=== PATIENT | female | born 1950 | race Caucasian/White ===

== ENCOUNTER 2023-01-31 14:49 | Emergency (ER) | payer MEDICARE ==
[2023-01-31] MEDS ORDERED: KETOROLAC 30 MG/ML VIAL IM STA (15:20)
--- NOTE | 2023-01-31 15:22 | ED Physician Documentation ---
History of Present Illness - Stated complaint Stated Complaint: SOA,CHEST PX - Chief complaint Chief Complaint: Trauma Ch/Bk - Additonal information Additional information: 72-year-old female presents emergency department for evaluation of chest pain after ground-level fall. Reports walking her dog on Sunday when the leash was pulled sharply. She fell directly forward landing on her chest. She was able to get up. Did not strike her head or lose consciousness but over the last several days she has had increasing pain and now feels bubbles in the right side of her chest when she breathes. She does have a large area of bruising on the anterior chest. Patient is not anticoagulated. Has no history of hypertension or diabetes. No history of pulmonary disorders. Patient has taken 1500 mg of Tylenol 2-3 times a day for the discomfort. Review of Systems Constitutional: denies: Fever, Chills Cardiac: reports: Chest pain / pressure Respiratory: reports: Reviewed and negative GI: reports: Reviewed and negative : reports: Reviewed and negative PD PAST MEDICAL HISTORY - Allergies Allergies/Adverse Reactions: Allergies Allergy/AdvReac Type Severity Reaction Status Date / Time Penicillins Allergy Unknown Verified 01/31/23 15:03 zolpidem [From Ambien] Allergy Unknown Verified 01/31/23 15:03 PD ED PE NORMAL - General General: Alert and oriented X 3, No acute distress, Well developed/nourished - HEENT HEENT: Atraumatic - Neck Neck: Supple, no meningeal sign - Cardiac Cardiac: RRR, No murmur, Strong equal pulses, Other (Reproducible tenderness with palpation of the right lower anterior chest. Directly over the area of ecchymosis. There is no crepitus. Reproducible tenderness with palpation of the left anterior chest but no ecchymosis or crepitus noted) - Respiratory Respiratory: No respiratory distress, Clear bilaterally Results - Vitals Vitals: Vital Signs - 24 hr 01/31/23 14:56 Temperature 35.8 C L Heart Rate 65 Respiratory 16 Rate Blood Pressure 135/79 H O2 Saturation 96 Oxygen O2 Source Room air - Rads (name of study) CT chest Relevant Findings:: Final report received (No displaced fracture, pneumothorax or contusion) PD Medical Decision Making - ED course Complexity details: reviewed results, re-evaluated patient, considered differential, d/w patient ED course: 72-year-old female presents to the emergency department for evaluation of reproducible chest pain after ground-level fall 4 days ago. She has an obvious area of bruising and contusion to the right lower anterior ribs. She is not anticoagulated however she has been taking 1500 mg of Tylenol 3 times a day for the pain. On exam she appears remarkably well speaking in full sentences. Room air saturations high 90s without any tachypnea. Cardiopulmonary auscultation was otherwise unremarkable. Given the age however I did obtain a noncontrast CT of the chest to evaluate for the possibility of rib fractures, pulmonary contusion, pleural effusions, pneumothorax. Per the radiologist interpretation of the CT scan there were no acute findings. I did administer her 30 mg of Toradol IM with marked improvement in symptoms. In follow-up I reevaluated her and she is feeling much better. I discussed the CT imaging findings which do not show any acute fractures of the ribs. She is encouraged by this and does request to be discharged home. We discussed conservative care to include appropriate use of Tylenol and ibuprofen. The usual emergent return precautions for worsening symptoms was discussed. Departure - Departure Disposition: 01 Home, Self Care Clinical Impression: Ground-level fall Chest wall contusion Qualifiers: Encounter type: initial encounter Laterality: left Qualified Code(s): S20.212A - Contusion of left front wall of thorax, initial encounter Condition: Stable Record reviewed to determine appropriate education?: Yes Instructions: ED Contusion Chest Wall Ch Comments: As discussed at the bedside the CT of your chest did not show any puncture of the lung, contusion of the lung or rib fractures. You do have a contusion or bruise of your chest wall. This is likely something that will get better over the next week or so. I recommend that you take Tylenol 500 mg 3-4 times a day or alternate with 600 mg of ibuprofen taken with food 2-3 times a day. In general would expect her symptoms to be getting much better over the next several days. Return to the ER if you develop any sudden severe shortness of air, have any productive cough or fevers that you feel is not improving as you would typically anticipate
--- NOTE | 2023-01-31 16:29 | CT Report ---
PROCEDURE: CHEST WO INDICATIONS: Ground-level fall, evaluate for rib fracture/contu TECHNIQUE: Noncontrast 1mm axial images were acquired from the pulmonary apices to the posterior costophrenic an gles. Axial 5 mm soft tissue kernel reconstructions were performed as well as 8 mm axial MIP and cor onal and sagittal 5 mm reformations. For radiation dose reduction, the following was used: automate d exposure control, adjustment of mA and/or kV according to patient size. COMPARISON: None FINDINGS: Image quality: Excellent. Lungs and pleura: No consolidation. No pleural effusions. No pneumothorax. No suspicious pulmonary n odules which require follow up. Right basilar atelectasis. Calcified granuloma in the left lower lobe . Mediastinum: Heart size is enlarged. No pericardial effusion. No large vessel abnormality. No mediast inal adenopathy by size criteria. Chest wall and lower neck: Thyroid is unremarkable. No axillary or supraclavicular adenopathy by size . Bones: No aggressive osseous abnormality. Upper Abdomen: Unremarkable. IMPRESSION: No displaced fracture, pneumothorax or contusion. Reviewed by: Humberto Mathew on 01/31/2023 4:28 PM PDT Approved by: Humberto Mathew on 01/31/2023 4:28 PM PDT Station ID: [id number]
[2023-01-31 17:02] VITALS: BP 126/75
== END 2023-01-31 17:00 | disposition home or self-care (01) ==
LOC: ED 14:49
DX: S20.212A Contusion of left front wall of thorax, initial encounter (principal); W18.39XA Other fall on same level, initial encounter; Y93.K1 Activity, walking an animal
CPT/HCPCS: 96372; 99283; 99284